=== PATIENT | female | born 1975 | race Caucasian/White ===

== ENCOUNTER 2019-01-08 18:03 | Emergency (ER) | payer MEDICAID, MEDICARE ==
[2019-01-08 18:41] VITALS: BP 112/74
--- NOTE | 2019-01-08 18:58 | EDM.PDOCBH ---
ED HPI GENERAL MEDICAL PROBLEM - General Chief Complaint: Behavioral/Psych Stated Complaint: EVAL Time Seen by Provider: 01/08/19 18:40 Source of Information: Reports: Patient, Family History Limitations: Reports: No Limitations - History of Present Illness INITIAL COMMENTS - FREE TEXT/NARRATIVE: 43-year-old female with long-standing severe depression, is disabled from working due to her chronic depression diagnosis. She has a past history of substance abuse but is currently not using. She feels especially depressed over the past 48 hours, and came in to "get help". She has not contacted her psychologist or primary provider in several months. She is not suicidal, is not harm herself and has no intention. 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: Musculoskeletal History: Reports: Fibromyalgia Neurological History: Reports: Head Trauma, Migraines Psychiatric History: Reports: Anxiety, Bipolar, Other (See Below) Other Psychiatric History: panic disorder borderline personality disorder - Infectious Disease History Infectious Disease History: Reports: Chicken Pox, Measles Other Infectious Disease History: anapolasmosis - Past Surgical History HEENT Surgical History: Reports: Adenoidectomy, Tonsillectomy GI Surgical History: Reports: Appendectomy, Cholecystectomy Female Surgical History: Reports: Section, Cystectomy, Hysterectomy Neurological Surgical History: Reports: Other (See Below) Social & Family History - Tobacco Use Smoking Status *Q: Current Every Day Smoker Years of Tobacco use: 25 Packs/Tins Daily: 1 Used Tobacco, but Quit: No Second Hand Smoke Exposure: Yes - Caffeine Use Caffeine Use: Reports: Coffee, Soda - Alcohol Use Days Per Week of Alcohol Use: 0 - Recreational Drug Use Recreational Drug Use: No - Living Situation & Occupation Living situation: Reports: , with Spouse ED ROS GENERAL - Review of Systems Review Of Systems: See Below Constitutional: Denies: Fever Respiratory: Denies: Shortness of Breath Cardiovascular: Denies: Chest Pain GI/Abdominal: Denies: Abdominal Pain, Nausea, Vomiting Skin: Reports: No Symptoms Neurological: Denies: Headache ED EXAM, BEHAVIORAL HEALTH - Physical Exam Exam: See Below Exam Limited By: No Limitations General Appearance: Alert, No Apparent Distress Respiratory/Chest: No Respiratory Distress, Lungs Clear Cardiovascular: Regular Rate, Rhythm Neurological: Alert Psychiatric: Depressed Mood, Flat Affect, Tearful Skin Exam: Warm, Dry COURSE, BEHAVIORAL HEALTH COMP - Course Vital Signs: Last Vital Signs Temp 96.7 F 01/08/19 18:29 Pulse 84 01/08/19 18:29 Resp 16 01/08/19 18:29 BP 112/74 01/08/19 18:29 Pulse Ox 97 01/08/19 18:29 Re-Assessment/Re-Exam: Informed the patient that we intended to get a crisis intervention evaluation tonight. However when she heard that it would take several hours, she decided to call Surekha Mckeon tomorrow who she has established care with in the past. Again she reiterates that she is not suicidal and has no intention of self-harm , and her family agrees. Departure - Departure Time of Disposition: 19:03 Disposition: Home, Self-Care 01 Condition: Fair Clinical Impression: Depressive disorder - Discharge Information Instructions: Major Depressive Disorder, Adult Referrals: PCP,None [Primary Care Provider] - Forms: ED Department Discharge Care Plan Goals: Continue your current medications, rest tonight and call your psychologist tomorrow to update care and come up with a plan of treatment.
== END 2019-01-08 19:03 | disposition home or self-care (01) ==
LOC: JP.ED 18:03
DX: F32.9 Major depressive disorder, single episode, unspecified (principal); F17.210 Nicotine dependence, cigarettes, uncomplicated; Z79.899 Other long term (current) drug therapy
CPT/HCPCS: 99283

== ENCOUNTER 2019-03-10 05:50 | Emergency (ER) | payer MEDICARE, MEDICAID ==
[2019-03-10 06:09] VITALS: BP 110/77
[2019-03-10] MEDS ORDERED: Bacitracin Oint 1 GM U/D Packet TOP ONE (06:20)
--- NOTE | 2019-03-10 06:49 | EDM.PDOC ---
ED HPI GENERAL MEDICAL PROBLEM - General Chief Complaint: Laceration Stated Complaint: LACERATION ON LT WRIST Time Seen by Provider: 03/10/19 06:15 Source of Information: Reports: Patient History Limitations: Reports: No Limitations - History of Present Illness INITIAL COMMENTS - FREE TEXT/NARRATIVE: 43-year-old female stumbled in her living room and falling on some picture frames with glass sustaining a laceration in her left ulnar aspect of the wrist. She has full range of motion and sensation of the distal wrist and hand. No other injury. 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: Musculoskeletal History: Reports: Fibromyalgia Neurological History: Reports: Head Trauma, Migraines Psychiatric History: Reports: Anxiety, Bipolar, Other (See Below) Other Psychiatric History: panic disorder borderline personality disorder - Infectious Disease History Infectious Disease History: Reports: Chicken Pox, Measles Other Infectious Disease History: anapolasmosis - Past Surgical History Head Surgeries/Procedures: Reports: None HEENT Surgical History: Reports: Adenoidectomy, Tonsillectomy GI Surgical History: Reports: Appendectomy, Cholecystectomy Female Surgical History: Reports: Section, Cystectomy, Hysterectomy Neurological Surgical History: Reports: Other (See Below) Musculoskeletal Surgical History: Reports: None Dermatological Surgical History: Reports: None Social & Family History - Tobacco Use Smoking Status *Q: Current Every Day Smoker Years of Tobacco use: 30 Packs/Tins Daily: 1 Used Tobacco, but Quit: No Second Hand Smoke Exposure: Yes - Caffeine Use Caffeine Use: Reports: Coffee, Soda - Recreational Drug Use Recreational Drug Use: No - Living Situation & Occupation Living situation: Reports: , with Spouse ED ROS GENERAL - Review of Systems Review Of Systems: See Below Constitutional: Reports: Chills. Denies: Fever Respiratory: Denies: Shortness of Breath Cardiovascular: Denies: Chest Pain GI/Abdominal: Denies: Nausea, Vomiting Psychiatric: Reports: Anxiety ED EXAM, SKIN/RASH Exam: See Below Exam Limited By: No Limitations General Appearance: Alert, No Apparent Distress, Anxious Respiratory/Chest: No Respiratory Distress Extremities: Other (exam is otherwise limited to the left arm. Patient is a 3 cm curved laceration on the ulnar aspect of the distal forearm proximal to the wrist, deep into the subcutaneous adipose tissue but does not involve any deeper structures.) Course - Vital Signs Last Recorded V/S: Last Vital Signs Temp 96.1 F 03/10/19 06:07 Pulse 100 03/10/19 06:07 Resp 16 03/10/19 06:07 BP 110/77 03/10/19 06:07 Pulse Ox 100 03/10/19 06:07 - Orders/Labs/Meds Meds: Medications Discontinued Medications Generic Name Dose Route Start Last Admin Trade Name Chrissq PRN Reason Stop Dose Admin Bacitracin 1 dose 03/10/19 06:20 03/10/19 06:40 Bacitracin Oint 1 Gm TOP 03/10/19 06:21 1 dose ONETIME ONE Administration Lidocaine HCl 5 ml 03/10/19 06:20 03/10/19 06:40 Xylocaine-Mpf 1% INJECT 03/10/19 06:21 5 ml ONETIME ONE Administration - Re-Assessments/Exams Free Text/Narrative Re-Assessment/Exam: 03/10/19 06:46 The wound was anesthetized with 1% lidocaine and carefully evaluated and no foreign bodies or underlying significant structures were involved. It was then thoroughly washed with saline and 2 5-0 Vicryl sutures were used to close the subcutaneous tissue. 7 4-0 Ethilon sutures were then used to close the laceration itself which was covered with bacitracin and dressed. Sutures can be removed in 8 days. Departure - Departure Time of Disposition: 06:50 Disposition: Home, Self-Care 01 Condition: Good Clinical Impression: Laceration of left forearm Qualifiers: Encounter type: initial encounter Qualified Code(s): S51.812A - Laceration without foreign body of left forearm, initial encounter - Discharge Information Instructions: Laceration Care, Adult, [id number] Referrals: PCP,None [Primary Care Provider] - Forms: ED Department Discharge Care Plan Goals: Keep wound covered and clean while healing. Sutures can be removed in 8 or 9 days, recheck sooner if concerns of infection or not healing satisfactorily.
== END 2019-03-10 06:50 | disposition home or self-care (01) ==
LOC: JP.ED 05:50
DX: S51.812A Laceration without foreign body of left forearm, initial encounter (principal); W25.XXXA Contact with sharp glass, initial encounter
CPT/HCPCS: 12032; 99282; J2001

== ENCOUNTER 2019-08-02 12:01 | Emergency (ER) | payer MEDICAID, MEDICARE ==
[2019-08-02 12:27] VITALS: BP 119/73; PULSE 56
[2019-08-02] MEDS ORDERED: Magnesium Citrate Solution 296 ML Bottle PO ONE (13:32)
--- NOTE | 2019-08-02 13:38 | EDM.PDOC ---
ED HPI GENERAL MEDICAL PROBLEM - General Chief Complaint: Genitourinary Problem Stated Complaint: FROM CLINIC- VAGINAL LEAKING AND PAIN Time Seen by Provider: 08/02/19 12:28 Source of Information: Reports: Patient History Limitations: Reports: No Limitations - History of Present Illness INITIAL COMMENTS - FREE TEXT/NARRATIVE: This lady was diagnosed with a rectocele recently. In order to have a bowel movement for the past 6 months she has had 2 put her fingers into the vagina. Today it is worse and she is not able to do this. She was treated recently with Diflucan for a vaginal yeast infection but thinks it is back. She has an appointment with MOLECULAR BIOLOGY DIRECTOR next week. She's having abdominal pain today and vomited once. She thinks that the rectocele has gotten a lot worse and that there's may be stool coming out of the vagina. 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: Musculoskeletal History: Reports: Fibromyalgia Neurological History: Reports: Head Trauma, Migraines Psychiatric History: Reports: Anxiety, Bipolar, Other (See Below) Other Psychiatric History: panic disorder borderline personality disorder - Infectious Disease History Infectious Disease History: Reports: Chicken Pox, Measles Other Infectious Disease History: anapolasmosis - Past Surgical History Head Surgeries/Procedures: Reports: None HEENT Surgical History: Reports: Adenoidectomy, Tonsillectomy GI Surgical History: Reports: Appendectomy, Cholecystectomy Female Surgical History: Reports: Section, Cystectomy, Hysterectomy Social & Family History - Tobacco Use Smoking Status *Q: Heavy Tobacco Smoker Years of Tobacco use: 30 Packs/Tins Daily: 1 - Caffeine Use Caffeine Use: Reports: Coffee, Soda - Recreational Drug Use Recreational Drug Use: No - Living Situation & Occupation Living situation: Reports: , with Spouse ED ROS GENERAL - Review of Systems Review Of Systems: See Below Constitutional: Reports: No Symptoms HEENT: Reports: No Symptoms Respiratory: Reports: No Symptoms Cardiovascular: Reports: No Symptoms Endocrine: Reports: No Symptoms GI/Abdominal: Reports: Abdominal Pain : Reports: Other (See history of present illness) Musculoskeletal: Reports: No Symptoms Skin: Reports: No Symptoms ED EXAM, RENAL/ - Physical Exam Exam: See Below Exam Limited By: No Limitations General Appearance: Alert, WD/WN, No Apparent Distress (Female) Exam: Other (Normal external structures. Moderate amount of fairly dry whitish chunky discharge. Very dry vagina. Posterior vaginal wall appears to be intact and this is confirmed by a rectal exam. There was no stool in the rectum. A vaginal speculum was inserted and there was nothing else discovered. The abdomen is soft but there is mild tenderness and mass effect to the entire right side of the abdomen consistent with a lot of stool in the before meals ending colon area of the descending colon appears to be empty.) Course - Vital Signs Last Recorded V/S: Last Vital Signs Temp 36.8 C 08/02/19 12:34 Pulse 56 L 08/02/19 12:34 Resp 13 08/02/19 12:34 BP 119/73 08/02/19 12:34 Pulse Ox 100 08/02/19 12:34 - Orders/Labs/Meds Orders: Active Orders 24 hr Category Date Time Status Magnesium Citrate [Citrate of Magnesia] Med 08/02/19 13:32 Once 296 ml PO ONETIME ONE Medication Orders Magnesium Citrate (Citrate Of Magnesia) 296 ml PO ONETIME ONE Stop: 08/02/19 13:33 Meds: Medications Generic Name Dose Route Start Last Admin Trade Name Monique PRN Reason Stop Dose Admin Magnesium Citrate 296 ml 08/02/19 13:32 Citrate Of Magnesia PO 08/02/19 13:33 ONETIME ONE - Re-Assessments/Exams Free Text/Narrative Re-Assessment/Exam: 08/02/19 13:36 Patient was given magnesium citrate one bottle orally in the ER Departure - Departure Time of Disposition: 13:36 Disposition: Home, Self-Care 01 Condition: Fair Clinical Impression: Rectocele, Vaginal candidiasis, Constipation - Discharge Information Referrals: PCP,None [Primary Care Provider] - Additional Instructions: For a vaginal yeast infection apply 1 applicator full of clotrimazole cream daily for 1 week. Drink several glasses of water today to accompany the magnesium citrate you received in the emergency department. Your bowels should start to clear out within 12-24 hours. Be sure to eat a high fiber diet every day afterwards and this will help prevent constipation in the future. Follow-up with MOLECULAR BIOLOGY DIRECTOR later next week as planned - My Orders Last 24 Hours: My Active Orders 08/02/19 13:32 Magnesium Citrate [Citrate of Magnesia] 296 ml PO ONETIME ONE - Assessment/Plan Last 24 Hours: My Active Orders 08/02/19 13:32 Magnesium Citrate [Citrate of Magnesia] 296 ml PO ONETIME ONE
== END 2019-08-02 13:54 | disposition home or self-care (01) ==
LOC: JP.ED 12:01
DX: N81.6 Rectocele (principal); B37.3 Candidiasis of vulva and vagina; K59.00 Constipation, unspecified; F17.200 Nicotine dependence, unspecified, uncomplicated
CPT/HCPCS: 99283; A9270

== ENCOUNTER 2020-04-29 14:10 | Emergency (ER) | payer OTHER, MEDICARE, MEDICAID ==
[2020-04-29 14:35] VITALS: BP 118/78; PULSE 82
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
== END 2020-04-29 15:15 | disposition home or self-care (01) ==
LOC: JP.ED 14:10
DX: S46.812A Strain of other muscles, fascia and tendons at shoulder and upper arm level, left arm, initial encounter (principal); F31.9 Bipolar disorder, unspecified; F41.9 Anxiety disorder, unspecified; F17.210 Nicotine dependence, cigarettes, uncomplicated; Z79.899 Other long term (current) drug therapy; V53.6XXA Passenger in pick-up truck or van injured in collision with car, pick-up truck or van in traffic accident, initial encounter
CPT/HCPCS: 99283